=== PATIENT | female | born 1990 | race Caucasian/White ===

== ENCOUNTER 2018-05-08 15:13 | Emergency (ER) | payer OTHER ==
[2018-05-08] MEDS: LORAZEPAM 1 MG TAB PO (16:20)
[2018-05-08] MEDS: ONDANSETRON 4 MG INJ IV (16:21)
[2018-05-08] MEDS: SOD CHLORIDE 0.9% 1,000 ML IV (16:22)
[2018-05-08 16:59] LABS: ADD MAN DIFF? NO
[2018-05-08 17:05] LABS: WHITE BLOOD COUNT 10.4 10^3/ul (4.8-10.8)
[2018-05-08 17:05] LABS: BASOPHIL # 0.1 10^3/ul (0.0-0.1); BASOPHILS % 0.9 % (0.0-2.0); EOSINOPHILS # 0.1 10^3/ul (0.0-0.5); HEMATOCRIT 40.3 % (37.0-47.0); HEMOGLOBIN 13.1 g/dl (12.0-16.0); LYMPHOCYTES # 1.2 10^3/ul (0.8-2.9); LYMPHOCYTES % 11.5 % (15.0-51.0); MEAN CORPUSCULAR HEMOGLOBIN 26.4 pg (29.0-33.0); MEAN CORPUSCULAR HGB CONC 32.5 g/dl (32.0-37.0); MEAN CORPUSCULAR VOLUME 81.1 fl (82.0-101.0); MEAN PLATELET VOLUME 9.3 fl (7.4-10.4); MONOCYTE # 0.6 10^3/ul (0.3-0.9); MONOCYTES % 5.4 % (0.0-11.0); NEUTROPHIL # 8.4 10^3/ul (1.6-7.5); NEUTROPHILS % 80.6 % (39.0-77.0); PLATELET COUNT 294 10^3/UL (140-415); RED BLOOD COUNT 4.97 10^6/ul (4.20-5.40); RED CELL DISTRIBUTION WIDTH 14.3 % (11.5-14.5)
[2018-05-08 17:27] LABS: ALANINE AMINOTRANSFERASE 34 IU/L (13-69); ALBUMIN 4.4 g/dl (3.3-4.9); ALKALINE PHOSPHATASE 141 IU/L (42-121); ANION GAP 13 (8-16); ASPARTATE AMINO TRANSFERASE 15 IU/L (15-46); BILIRUBIN,INDIRECT 0.4 mg/dl (0-1.1); BILIRUBIN,TOTAL 0.4 mg/dl (0.2-1.3); BLOOD UREA NITROGEN 14 mg/dl (7-20); CALCIUM 9.5 mg/dl (8.4-10.2); CARBON DIOXIDE 23 mmol/L (21-31); CHLORIDE 106 mmol/L (97-110); CREATININE 0.78 mg/dl (0.44-1.00); GLUCOSE 90 mg/dl (70-220); POTASSIUM 3.8 mmol/L (3.5-5.1); SODIUM 138 mmol/L (135-144); TOTAL PROTEIN 8.4 g/dl (6.1-8.1)
[2018-05-08 18:43] LABS: URINE PH (Dip) POC 6.5 (5.0-8.5)
[2018-05-08 18:43] LABS: URINE BLOOD (Dip) POC 1+ (NEGATIVE); URINE GLUCOSE (Dip) POC Negative (NEGATIVE); URINE KETONES (Dip) POC Negative (NEGATIVE); URINE LEUKOCYTE EST (Dip) POC Trace (NEGATIVE); URINE NITRITE (Dip) POC Negative (NEGATIVE); URINE TOTAL PROTEIN POC Negative (NEGATIVE)
== END 2018-05-09 00:33 | disposition short-term general hospital (02) ==
LOC: E/R 05-09 00:33 → FTE 15:13
DX: C40.02 Malignant neoplasm of scapula and long bones of left upper limb (principal); R40.2142 Coma scale, eyes open, spontaneous, at arrival to emergency department; R40.2252 Coma scale, best verbal response, oriented, at arrival to emergency department; R40.2362 Coma scale, best motor response, obeys commands, at arrival to emergency department; G93.9 Disorder of brain, unspecified
CPT/HCPCS: 70450; 73060; 73090; 74176; 80053; 81003; 81025; 85025; 96374; 99285-25

== ENCOUNTER 2018-08-03 19:32 | Emergency (ER) | payer OTHER ==
[2018-08-03] MEDS: IBUPROFEN 600 MG TAB PO (23:12)
== END 2018-08-03 23:15 | disposition home or self-care (01) ==
LOC: FTE 19:32
DX: N60.02 Solitary cyst of left breast (principal)
CPT/HCPCS: 76642; 99284-25

== ENCOUNTER 2019-06-23 14:44 | Emergency (ER) | payer OTHER ==
[2019-06-23 15:54] LABS: URINE BLOOD (Dip) POC 2+ (NEGATIVE); URINE GLUCOSE (Dip) POC Negative (NEGATIVE); URINE KETONES (Dip) POC Negative (NEGATIVE); URINE LEUKOCYTE EST (Dip) POC 1+ (NEGATIVE); URINE NITRITE (Dip) POC Negative (NEGATIVE); URINE TOTAL PROTEIN POC 1+ (NEGATIVE)
[2019-06-23 16:00] LABS: ADD MAN DIFF? NO
[2019-06-23 16:03] LABS: BASOPHIL # 0.1 10^3/ul (0.0-0.1); BASOPHILS % 0.5 % (0.0-2.0); EOSINOPHILS # 0.1 10^3/ul (0.0-0.5); EOSINOPHILS % 0.7 % (0.0-7.0); HEMATOCRIT 29.5 % (37.0-47.0); HEMOGLOBIN 8.9 g/dl (12.0-16.0); LYMPHOCYTES # 1.4 10^3/ul (0.8-2.9); LYMPHOCYTES % 11.7 % (15.0-51.0); MEAN CORPUSCULAR HEMOGLOBIN 22.6 pg (29.0-33.0); MEAN CORPUSCULAR HGB CONC 30.2 g/dl (32.0-37.0); MEAN CORPUSCULAR VOLUME 74.9 fl (82.0-101.0); MEAN PLATELET VOLUME 8.5 fl (7.4-10.4); MONOCYTES % 8.6 % (0.0-11.0); NEUTROPHIL # 9.4 10^3/ul (1.6-7.5); NEUTROPHILS % 77.8 % (39.0-77.0); PLATELET COUNT 315 10^3/UL (140-415); RED BLOOD COUNT 3.94 10^6/ul (4.20-5.40); RED CELL DISTRIBUTION WIDTH 16.5 % (11.5-14.5)
[2019-06-23 16:03] LABS: WHITE BLOOD COUNT 12.1 10^3/ul (4.8-10.8)
[2019-06-23] MEDS: SODIUM CHLORIDE 0.9% 1L BAG IV* (16:07)
[2019-06-23] MEDS: CEFEPIME 2GM/50 ML (PMX) 50 ML IVPB (16:07)
[2019-06-23 16:20] LABS: ALANINE AMINOTRANSFERASE 20 IU/L (13-69); ALBUMIN 3.8 g/dl (3.3-4.9); ALBUMIN/GLOBULIN RATIO 1.08; ALKALINE PHOSPHATASE 120 IU/L (42-121); ANION GAP 8 (5-13); ASPARTATE AMINO TRANSFERASE 15 IU/L (15-46); BILIRUBIN,INDIRECT 0.4 mg/dl (0-1.1); BILIRUBIN,TOTAL 0.4 mg/dl (0.2-1.3); BLOOD UREA NITROGEN 10 mg/dl (7-20); CALCIUM 9.2 mg/dl (8.4-10.2); CARBON DIOXIDE 27 mmol/L (21-31); CHLORIDE 103 mmol/L (97-110); CREATININE 0.69 mg/dl (0.44-1.00); Estimated GFR > 60 mL/min (>60); GLUCOSE 103 mg/dl (70-220); POTASSIUM 3.8 mmol/L (3.5-5.1); SODIUM 138 mmol/L (135-144); TOTAL PROTEIN 7.3 g/dl (6.1-8.1)
[2019-06-23 16:24] LABS: INR 0.92; PROTIME 12.5 Sec (11.9-14.9)
[2019-06-23 16:25] LABS: PARTIAL THROMBOPLASTIN TIME 30.1 Sec (23.0-35.0)
[2019-06-23] MEDS: VANCOMYCIN 1 GM (PMX) 250 ML IVPB (17:12)
[2019-06-23] MEDS: morphine 10 MG INJ IV (19:18)
[2019-06-23 19:32] LABS: LACTIC ACID 0.7 mmol/L (0.5-2.0)
== END 2019-06-23 20:52 | disposition home or self-care (01) ==
LOC: E/R 14:44
DX: R51 Headache (principal); Z85.830 Personal history of malignant neoplasm of bone
CPT/HCPCS: 36415; 70553; 80053; 81003; 81025; 83605; 85025; 85610; 85730; 87040-91; 93005; 96365; 96366; 96375; 99285-25